=== PATIENT | male | born 1980 | race Caucasian/White ===

== ENCOUNTER 2022-12-09 14:19 | Emergency (ER) | payer MEDICAID ==
[~2022-12-09] VITALS: Ht 170.2 cm; Wt 99.8 kg
[2022-12-09 14:43] LABS: HEMATOCRIT 41.7 % (36.7-47.1); MEAN CORPUSCULAR VOLUME 88.5 fL (73.0-96.2); PLATELET COUNT (AUTO) 275 K/uL (152-348)
[2022-12-09 15:05] LABS: CARBON DIOXIDE 29 mmol/L (21-32); CHLORIDE 103 mmol/L (98-107); CREATININE 0.9 mg/dL (0.6-1.3); GLUCOSE 102 mg/dL (74-106); POTASSIUM 4.2 mmol/L (3.5-5.1); UREA NITROGEN, BLOOD 9 mg/dL (7-18)
--- NOTE | 2022-12-09 15:05 | NUR ---
Pt seen by . Safety measures in place. Will continue to monitor.
[2022-12-09] MEDS ORDERED: ASPIRIN 81 MG TAB.CHEW PO ONE (15:15)
[2022-12-09] MEDS ORDERED: ASPIRIN 81 MG TAB.CHEW ONE (15:23)
--- NOTE | 2022-12-09 18:01 | NUR ---
Patient discharged to home in stable condition. Written and verbal after care instructions given. Patient verbalizes understanding of instructions. Stressed follow up or return to ER for worsening s/s.
[2022-12-09 18:02] VITALS: BP 142/100
== END 2022-12-09 18:03 | disposition home or self-care (01) ==
LOC: ER 14:19
DX: R07.89 Other chest pain (principal); I10 Essential (primary) hypertension; F17.210 Nicotine dependence, cigarettes, uncomplicated; Z71.6 Tobacco abuse counseling
CPT/HCPCS: 36415; 71045; 84484; 85025; 93005; A4663